=== PATIENT | female | born 1990 | race Caucasian/White ===

== ENCOUNTER 2017-03-06 22:36 | Outpatient (CLI) | payer OTHER ==
[2017-03-06 23:00] LABS: APPEARANCE,URINE CLEAR; BILIRUBIN,URINE NEGATIVE (NEGATIVE); GLUCOSE, URINE NEGATIVE (NEGATIVE); KETONES,URINE NEGATIVE (NEGATIVE); LEUKOCYTE ESTERASE,URINE SMALL (NEGATIVE); NITRITE,URINE NEGATIVE (NEGATIVE); PROTEIN,URINE NEGATIVE (NEGATIVE); URINE SPECIFIC GRAVITY 1.009
[2017-03-06 23:10] LABS: URINE BARBITURATES SCREEN NEGATIVE; URINE METHADONE SCREEN NEGATIVE; URINE OPIATES LOW NEGATIVE; URINE PHENCYCLIDINE SCREEN NEGATIVE
[2017-03-06] MEDS ORDERED: RINGERS SOLUTION,LACTATED 1,000 ML IV PRN (23:55)
--- NOTE | 2017-03-07 00:59 | RADIOLOGY REPORT (SQ) ---
EXAM DESCRIPTION: U/S OB LIMITED COMPLETED DATE/TIME: 03/07/2017 12:29 am REASON FOR STUDY: cervical length for contractions COMPARISON: None. TECHNIQUE: Limited transvaginal and transabdominal grayscale ultrasound for evaluation of specific r equested obstetrical parameters. LIMITATIONS: None. FINDINGS: CERVICAL LENGTH: 5.7 cm. Closed. IDALMIS: Adequate. FHR: 153 beats per minute. PRESENTATION: Breech. OTHER: No other significant findings. IMPRESSION: LIMITED OBSTETRICAL ULTRASOUND WITH MEASURED PARAMETERS DELINEATED ABOVE. Trimester of : Third trimester - 28 weeks to delivery. TECHNICAL DOCUMENTATION: JOB ID: [id number] [employer]- All Rights Reserved
== END 2017-03-07 01:21 | disposition home or self-care (01) ==
LOC: LC 22:36
PROVIDERS: ATTEND Obstetrics & Gynecology
PROC: 4A1HXCZ Monitoring of Products of Conception, Cardiac Rate, External Approach (ICD-10-PCS; principal; 2017-03-06)
DX: O47.02 False labor before 37 completed weeks of gestation, second trimester (principal); Z3A.24 24 weeks gestation of pregnancy
CPT/HCPCS: 76815; 80307; 81001

== ENCOUNTER 2017-06-05 23:36 | Outpatient (CLI) | payer OTHER ==
[2017-06-06 00:45] LABS: APPEARANCE,URINE CLOUDY; BILIRUBIN,URINE NEGATIVE (NEGATIVE); GLUCOSE, URINE NEGATIVE (NEGATIVE); KETONES,URINE NEGATIVE (NEGATIVE); LEUKOCYTE ESTERASE,URINE MODERATE (NEGATIVE); NITRITE,URINE NEGATIVE (NEGATIVE); PROTEIN,URINE NEGATIVE (NEGATIVE); URINE SPECIFIC GRAVITY 1.019; UROBILINOGEN,URINE NEGATIVE mg/dL (<2.0)
[2017-06-06 00:54] LABS: AMNISURE (ROM) NEGATIVE (NEGATIVE)
[2017-06-06 01:44] LABS: URINE BARBITURATES SCREEN NEGATIVE; URINE METHADONE SCREEN NEGATIVE; URINE OPIATES LOW NEGATIVE; URINE PHENCYCLIDINE SCREEN NEGATIVE
== END 2017-06-06 01:11 | disposition home or self-care (01) ==
LOC: LC 23:36
PROVIDERS: ATTEND Obstetrics & Gynecology
PROC: 4A1HXCZ Monitoring of Products of Conception, Cardiac Rate, External Approach (ICD-10-PCS; principal; 2017-06-05)
DX: Z36 Encounter for antenatal screening of mother (principal); Z3A.37 37 weeks gestation of pregnancy
CPT/HCPCS: 59025; 80307; 81005; 84112

== ENCOUNTER 2017-06-15 03:24 | Inpatient (IN) | payer OTHER ==
--- NOTE | 2017-06-15 03:36 | Non Stress Test Report ---
Non Stress Test Datetime Report Generated by CPN: 06/15/2017 03:35 DEMOGRAPHIC Test Number: 1 EGA NST: 37.5 INDICATION Indication for Study: Other Indication for Study (NST) Other: Labor check MONITORING Monitor Explained: Monitor Explained; Test Explained; Patient Verbalized Understanding Time on Monitor: 06/05/2017 23:56 Time off Monitor: 06/06/2017 01:00 NST Duration: 64 NST INTERVENTIONS NST Interventions: None Physician Notified NST: Dr Limon BABY A: [id number] BABY A Movement : Present Contraction Frequency : occasional with irritability FHR Baseline : 125 Accelerations : 15X15 Decelerations : None Variability : Moderate 6-25bpm NST Review: Meets Criteria for Reactive NST NST Review and Verified By : Zunilda Lopez RN NST Results: Reactive NST REPORT Report Trigger: Send Report
[2017-06-15 03:53] LABS: APPEARANCE,URINE CLOUDY; BILIRUBIN,URINE NEGATIVE (NEGATIVE); GLUCOSE, URINE NEGATIVE (NEGATIVE); KETONES,URINE NEGATIVE (NEGATIVE); LEUKOCYTE ESTERASE,URINE LARGE (NEGATIVE); NITRITE,URINE NEGATIVE (NEGATIVE); PROTEIN,URINE NEGATIVE (NEGATIVE); URINE SPECIFIC GRAVITY 1.012
[2017-06-15 04:08] LABS: URINE BARBITURATES SCREEN NEGATIVE; URINE METHADONE SCREEN NEGATIVE; URINE OPIATES LOW NEGATIVE; URINE PHENCYCLIDINE SCREEN NEGATIVE
[2017-06-15] MEDS ORDERED: FENTANYL/BUPIVACAINE/NS/PF 200 MCG/100 ML RTUINJ EPI PRN (04:41)
[2017-06-15] MEDS ORDERED: BENZOIN/ALOE VERA/STORAX/TOLU TINCTURE 60 ML TP PRN (04:41)
[2017-06-15] MEDS ORDERED: EPHEDRINE SULFATE INJ 50 MG/1 ML AMPULE IV PRN (04:41)
[2017-06-15] MEDS ORDERED: BUPIVACAINE HCL 0.25 % INJ/PF (2.5 MG/1 ML) 30 ML VIAL INFIL ONE (04:41)
[2017-06-15] MEDS ORDERED: EPHEDRINE SULFATE INJ 50 MG/1 ML AMPULE IV ONE (04:41)
[2017-06-15 04:53] LABS: ABSOLUTE EOSINOPHILS # (AUTO) 0.1 10^3/uL (0.0-0.6); ABSOLUTE LYMPHOCYTES (AUTO) 1.4 10^3/uL (0.5-4.7); ABSOLUTE MONOCYTES (AUTO) 0.7 10^3/uL (0.1-1.4); ABSOLUTE NEUT (AUTO) 5.5 10^3/uL (1.7-8.2); BASOPHILS % (AUTO) 0.3 % (0-2); EOSINOPHILS % (AUTO) 0.8 % (0-6); HEMATOCRIT 33.1 % (36.0-47.0); HEMOGLOBIN 11.3 g/dL (12.0-15.5); HGB HCT DIFFERENCE 0.8; LYMPHOCYTES % (AUTO) 18.2 % (13-45); MEAN CORPUSCULAR VOLUME 88 fl (80-97); MONOCYTES % (AUTO) 8.9 % (3-13); RED BLOOD COUNT 3.75 10^6/uL (3.72-5.28); RED CELL DISTRIBUTION WIDTH 13.9 % (11.5-14.0); SEGMENTED NEUTROPHILS % (AUTO) 71.8 % (42-78); WHITE BLOOD COUNT 7.6 10^3/uL (4.0-10.5)
[2017-06-15] MEDS ORDERED: OXYTOCIN/NORMAL SALINE 20 UNIT/1,000 ML RTUINJ ONE (04:56)
[2017-06-15] MEDS ORDERED: MISOPROSTOL 0.2 MG TABLET ONE (04:56)
[2017-06-15] MEDS ORDERED: LIDOCAINE 1% INJ-PF (10 MG/ML) 30 ML SDV ONE (04:56)
[2017-06-15] MEDS ORDERED: PHENYLEPHRINE HCL INJ/PF 10 MG/1 ML SDV ONE (04:57)
[2017-06-15] MEDS ORDERED: FENTANYL/BUPIVACAINE/NS/PF 200 MCG/100 ML RTUINJ EPI ONE (04:57)
[2017-06-15] MEDS ORDERED: FENTANYL CITRATE INJ/PF 100 MCG/2 ML AMPUL ONE (04:57)
[2017-06-15] MEDS ORDERED: EPHEDRINE SULFATE INJ 50 MG/1 ML AMPULE ONE (04:57)
[2017-06-15] MEDS ORDERED: BUPIVACAINE HCL 0.25 % INJ/PF (2.5 MG/1 ML) 30 ML VIAL ONE (04:58)
[2017-06-15] MEDS: RINGERS SOLUTION,LACTATED 1,000 ML IV PRN ×2 (06:19→06:20)
--- NOTE | 2017-06-15 09:28 | L&D Progress Notes ---
PROGRESS NOTES Datetime Report Generated by CPN: 06/15/2017 09:28 PROGRESS NOTE Impression: Normal Progression of Labor; Reassuring Heart Rate Impression: Normal Progression of Labor; Reassuring Heart Rate Procedures: Artificial ROM; Sterile Vag Exam Procedures: Artificial ROM; Sterile Vag Exam Plan: Continue Present Management Plan: Continue Present Management Informed Consent Obtained: Vaginal Delivery Informed Consent Obtained: Vaginal Delivery Vital Signs : Reviewed Vital Signs : Reviewed; Within Normal Limits Comment: SVE as above AROM clear Anticipate VAGINAL EXAM Dilatation: 9 Dilatation: 6 Effacement: 90 Effacement: 80 Station: 0 Station: 0 Contractions: 3-4 MEMBRANES Membranes: Ruptured Membranes: Intact Amniotic Fluid Color: Clear FETUS A FHR - Baseline: 125 Monitoring: External US Variability: Moderate 6-25bpm Accelerations: 15X15 Decelerations: None FHR Category: Category I : 39.1 Presentation: Vertex SIGNATURE SIGNATURE: [id number] SIGNATURE: [id number] Assignment: Lakesha Paz MD Signature: with User ID: [email or web address] : with User ID: [email or web address]
[2017-06-15] MEDS ORDERED: ACETAMINOPHEN WITH CODEINE #3 TABLET PO PRN ×2 (11:23)
[2017-06-15] MEDS ORDERED: DIBUCAINE 1% OINTMENT 28 GM TP PRN (11:23)
[2017-06-15] MEDS ORDERED: MEASLES,MUMPS&RUBELLA VACC/PF 0.5 ML VIAL SUBCUT PRN (11:23)
[2017-06-15] MEDS ORDERED: DIPH/PERTUSS(ACELL)/TETANUS VAC/PF 0.5 ML SYR (>=10YO) IM PRN (11:23)
[2017-06-15] MEDS ORDERED: BENZOCAINE/MENTHOL AEROSOL SPRAY 56 ML TOP PRN (11:23)
[2017-06-15] MEDS ORDERED: OXYTOCIN/NORMAL SALINE 20 UNIT/1,000 ML RTUINJ IV PRN (11:23)
[2017-06-15] MEDS ORDERED: NALBUPHINE HCL INJ 10 MG/1 ML AMPULE ONE (12:41)
[2017-06-15] MEDS ORDERED: NALBUPHINE HCL INJ 10 MG/1 ML AMPULE INJ ONE (12:52)
--- NOTE | 2017-06-15 13:23 | Delivery Summary ---
Del Sum A-C Datetime Report Generated by CPN: 06/15/2017 13:23 DELIVERY PERSONNEL DELIVERY PERSONNEL: [id number] Delivery Doctor:: Bernarda Ballesteros CNM Nurse Solid Waste Manager Certified:: Bernarda Ballesteros CNM Labor and Delivery Nurse:: Chel Javier RNslot service specialist Nurse:: SHAHEEN Martinez Container Finisher/PATTERN SCRATCHER: Sonya Matos, ST Container Finisher/PATTERN SCRATCHER: Shey Brown PATTERN SCRATCHER II MATERNAL INFORMATION Delivery Anesthesia: Epidural Medications After Delivery: Pitocin Bolus-Please Comment; Pitocin Drip 20 Units/1000ml NSS; Other-Please Comment Meds After Delivery Comment: Cytotec 1000 mcg AR Estimated Blood Loss (ml): 200 Maternal Complications: None Provider Comments: of viable female . Head delivered loose nuchal noted, reduced, shoulders and body delivered without difficulty, infant with spontaneous cry and respoirations, to warmer, after cord clamped X2 and cut free. Spontaneous delivery of placenta via cash mechanism, appears intact, 3 VC. Vagina and perineum inspected, no lacerations ntoed, hemostasis acheived with external fundal massage and IV Pitocin. Routine pp care. LABOR SUMMARY EDC: 06/21/2017 00:00 No. Babies in Womb: 1 Attempted: No Labor Anesthesia: Epidural LABOR INFORMATION Reason for Induction: Not Applicable Onset of Labor: 06/15/2017 03:48 Complete Dilatation: 06/15/2017 10:55 Oxytocin: N/A Group B Beta Strep: negative Antibiotics # of Doses: 0 Steroids Given: None Reason Steroids Not Administered: Not Applicable MEMBRANES Membranes Rupture Method: Artificial Rupture of Membranes: 06/15/2017 09:22 Length of Rupture (hr): 1.63 Amniotic Fluid Color: Clear Amniotic Fluid Amount: Moderate Amniotic Fluid Odor: Normal STAGES OF LABOR Stage 1 hr: 7 Stage 1 min: 7 Stage 2 hr: 0 Stage 2 min: 5 Stage 3 hr: 0 Stage 3 min: 2 Total Time in Labor hr: 7 Total Time in Labor min: 14 VAGINAL DELIVERY Episiotomy: None Laceration Extension: N/A Laceration Type: None Laceration Repair: Not Applicable Laceration Repair Note: n/a Sponge Count Correct: N/A CSECTION DELIVERY Primary Indication: N/A CSection Incision: N/A BABY A INFORMATION Infant Delivery Date/Time: 06/15/2017 11:00 Method of Delivery: Vaginal Born in Route : No : N/A Forceps: N/A Vacuum Extraction: N/A Shoulder Dystocia : No PRESENTATION/POSITION BABY A Presentation: Cephalic Cephalic Presentation: Vertex Vertex Position: Left Occipital Anterior Breech Presentation: N/A PLACENTA INFORMATION BABY A Placenta Delivery Time : 06/15/2017 11:02 Placenta Method of Delivery: Spontaneous Placenta Status: Delivered SCORES BABY A Heart Rate 1 min: >100 bpm Resp Effort 1 min: Good Cry Reflex Irritability 1 min: Cough or Sneeze or Pulls Away Muscle Tone 1 min: Active Motion Color 1 min: Blue/Pale Resuscitation Effort 1 min: Tactile Stimulation SCORE 1 MIN: 8 Heart Rate 5 min: >100 bpm Resp Effort 5 min: Good Cry Reflex Irritability 5 min: Cough or Sneeze or Pulls Away Muscle Tone 5 min: Active Motion Color 5 min: Body [place], Extremities Blue Resuscitation Effort 5 min: Tactile Stimulation SCORE 5 MIN: 9 INFORMATION BABY A Gestational Age at Delivery: 39.1 Gestational Status: Full Term- 39- 40.6 Weeks Outcome : Liveborn Condition : Stable Sex: Female IDENTIFICATION BABY A Verification Date/Time: 06/15/2017 11:19 ID Band Number: [id number] Mother's Name Verified: Yes RN Verifying : C Girolamo RN Additional Verifying Personnel: D [facility] RNC WEIGHT/LENGTH BABY A Infant Birthweight (gm): 3050 Infant Weight (lb): 6 Weight (oz): 12 Infant Length (in): 21.50 Infant Length (cm): 54.61 CORD INFORMATION BABY A No. Cord Vessels: 3 Nuchal Cord : N/A Cord Blood Taken: Yes-For Eval (Mom's Blood Type - or O+) Infant Suction: Mouth; Nose ASSESSMENT BABY A Complications: Multiple Variable Decels Physical Findings at Delivery: Within Normal Limits Infant Respirations: Appears Normal Skin to Skin: No Addictions Counselor/ALS Called : No Care By: D Bellavance RNC Transferred To: Remains with Mother RESUSCITATION BABY A Resuscitation Effort: Tactile Stimulation SIGNATURES Assignment: Lakesha Paz MD Signature: with User ID: [email or web address] : with User ID: [email or web address]
--- NOTE | 2017-06-15 13:44 | Admission Physical ---
Datetime Report Generated by CPN: 06/15/2017 13:44 CURRENT ADMISSION Chief Complaint: Uterine Contractions Indication for Induction: Not Applicable Admit Plan: Admit to Unit; Initiate Labor Protocol ALLERGIES Medication Allergies: No Medication Allergies: No Known Allergies (03/07/2017) Latex: No Latex Allergies OBSTETRICAL HISTORY EDC: 06/21/2017 00:00 : 5 Para: 3 Term: 3 : 0 SAB: 0 IAB: 1 Ectopic: 0 Livin Cesareans: 0 VBACs: 0 Multiple Births: 0 Gestational Diabetes: No Rh Sensitization: No Incompetent Cervix: No LUANNE: No Infertility: No ART Treatment: No Uterine Anomaly: No IUGR: No Hx Previous C/S: No Macrosomia: No Hx Loss/Stillborn: No PIH: No Hx : No Placenta Previa/Abruption: No Depression/PP Depression: No PTL/PROM: Yes Post Hemorrhage: No Current Procedures: None; NST Obstetrical History Comments: g1-2007, , male, 19 1/2 hours of labor, 6lb 10oz g2- 2008, unsure of gestation EAB per patient prenatals g3-2012, , male, 9 hours of labor, 6lb 70z g4-2016, , female, unsure of labor time, 6lb 90z, started labor was on procardia until delivery 38 weeks g5-current , short interval pregnancies SEE RECORDS Alcohol: No Marijuana : No Cocaine: No Other Illicit Drugs: No Cigarettes: Former Smoker. 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 Heart Disease: No Hosp/Surgery: Yes Autoimmune Disorder: No Anesthetic Complications: No Kidney Disease: No Abnormal Pap Smear: No Neuro/Epilepsy: No Psychiatric Disorders: No Other Medical Diseases: No Hepatitis/Liver Disease: No Significant Family History: No Varicosities/Phlebitis: No Trauma/Violence : No Thyroid Dysfunction: No Medical History Comments: R knee surgery 2005, childbirth x3, former smoker INFECTIOUS HISTORY Gonorrhea: No Genital Herpes: No Chlamydia: No Tuberculosis: No Syphilis: No Hepatitis: No HIV/AIDS Exposure: No Rash or Viral Illness: No HPV: No PHYSICAL EXAM General: Normal HEENT: Normal Neurologic: Normal Thyroid: Deferred Heart: Normal Lungs: Normal Breast: Deferred Back: Normal Abdomen: Normal Genitourinary Exam: Normal Extremities: Normal DTRs: Normal Pelvic Type: Adequate Vital Signs: Reviewed; Within Normal Limits VAGINAL EXAM Dilatation: 9 Dilatation: 6 Effacement: 90 Effacement: 80 Station: 0 Station: 0 Contraction Comments: 3-4 MEMBRANES Membranes: Ruptured Membranes: Intact Amniotic Fluid Color: Clear FETUS A EGA: 39.1 Monitoring: External US FHR- Baseline: 140 Variability: Moderate 6-25bpm Accelerations: 15X15 Decelerations: None FHR Category: Category I Presentation: Vertex PLANS FOR LABOR AND DELIVERY Labor and Delivery: None Pain Management: Epidural Feeding Preference: Formula Benefit of Breast Feed Discussed: Yes Circumcision: N/A INFORMED CONSENT Informed Consent Obtained: Vaginal Delivery Informed Consent Obtained: Vaginal Delivery Signature: with User ID: [email or web address]
[2017-06-15] MEDS: IBUPROFEN 800 MG TABLET PO SCH ×2 (16:29→21:32)
[2017-06-15] MEDS: FERROUS SULFATE 325 MG TABLET PO SCH (17:37)
[2017-06-15] MEDS: DOCUSATE SODIUM 100 MG CAPSULE PO SCH (17:37)
[2017-06-15] MEDS: ZOLPIDEM TARTRATE 5 MG TABLET PO PRN (22:50)
[2017-06-16] MEDS: IBUPROFEN 800 MG TABLET PO SCH ×3 (05:11→21:03)
[2017-06-16 07:40] LABS: HEMATOCRIT 30.4 % (36.0-47.0); HEMOGLOBIN 10.9 g/dL (12.0-15.5); HGB HCT DIFFERENCE 2.3; MEAN CORPUSCULAR HEMOGLOBIN 30.9 pg (27.0-33.4); MEAN CORPUSCULAR HGB CONC 35.9 g/dL (32.0-36.0); MEAN CORPUSCULAR VOLUME 86 fl (80-97); RED BLOOD COUNT 3.53 10^6/uL (3.72-5.28); RED CELL DISTRIBUTION WIDTH 14.2 % (11.5-14.0); WHITE BLOOD COUNT 8.8 10^3/uL (4.0-10.5)
[2017-06-16] MEDS: PRENATAL VITAMIN W-O CA NO5/FE FUMARATE/FA CAPSULE PO SCH (09:50)
[2017-06-16] MEDS: FERROUS SULFATE 325 MG TABLET PO SCH ×2 (09:51→18:54)
[2017-06-16] MEDS: SENNOSIDES/DOCUSATE 8.6-50 MG 1 EACH TABLET PO SCH (09:51)
[2017-06-16] MEDS: DOCUSATE SODIUM 100 MG CAPSULE PO SCH ×2 (09:51→18:55)
--- NOTE | 2017-06-16 11:01 | PDOC PROGRESS REPORT ---
Subjective-OB Subjective: Post Delivery Day: 26 year old. Denies any needs at this time Physical Exam (OB) Vital Signs: Temp Pulse Resp BP Pulse Ox 97.3 F 69 14 121/73 100 06/16/17 08:29 06/16/17 08:29 06/16/17 08:29 06/16/17 08:29 06/16/17 08:29 Intake & Output 06/15/17 06/16/17 06/17/17 06:59 06:59 06:59 Intake Total 400 Balance 400 Weight 73.9 kg - Lochia Lochia Amount: Small 10-25 ml Lochia Color: Rubra/Red - Abdomen Description: Soft, Round Hernia Present: No Bowel Sounds: Normoactive Flatus Presence: Absent Stool: No Fundal Description: Firm, Midline Fundal Height: u/u - u/2 Objective-Diagnostic Laboratory: 06/16/17 07:06 06/16/17 06/16/17 07:06 07:06 WBC 8.8 RBC 3.53 L Hgb 10.9 L Hct 30.4 L MCV 86 MCH 30.9 MCHC 35.9 RDW 14.2 H Plt Count 166 Blood Type A NEGATIVE
[2017-06-16] MEDS: ZOLPIDEM TARTRATE 5 MG TABLET PO PRN (21:04)
[2017-06-17] MEDS: IBUPROFEN 800 MG TABLET PO SCH (05:50)
[2017-06-17 08:55] VITALS: BP 131/69
--- NOTE | 2017-06-17 09:08 | PDOC DISCHARGE SUMMARY ---
Final Diagnosis Discharge Date: 06/17/17 - Final Diagnosis (1) Delivery normal Is this a current diagnosis for this admission?: Yes (2) Lapse in antepartum care Is this a current diagnosis for this admission?: Yes Discharge Data - Discharge Medication Home Medications: No Home Medications 03/07/17 Reason(s) for Admission: Onset of Labor Procedures: NST Intrapartum Procedure(s): Spontaneous Vaginal Delivery - Diagnosis Test Laboratory: Temp Pulse Resp BP Pulse Ox 98.0 F 66 16 131/69 H 100 06/17/17 08:38 06/17/17 08:38 06/17/17 08:38 06/17/17 08:38 06/17/17 08:38 06/15/17 06/15/17 06/16/17 03:36 04:18 07:06 RBC 3.75 3.53 L Hgb 11.3 L 10.9 L Hct 33.1 L 30.4 L Urine Opiates Screen NEGATIVE - Discharge information/Instructions Discharge Activity: Balance Activity w/Rest, Pelvic Rest Discharge Diet: Regular Disposition: HOME, SELF-CARE Follow up with: [facility] in: 4, Weeks
[2017-06-17] MEDS: FERROUS SULFATE 325 MG TABLET PO SCH (09:52)
[2017-06-17] MEDS: DOCUSATE SODIUM 100 MG CAPSULE PO SCH (09:53)
[2017-06-17] MEDS: SENNOSIDES/DOCUSATE 8.6-50 MG 1 EACH TABLET PO SCH (09:53)
[2017-06-17] MEDS: PRENATAL VITAMIN W-O CA NO5/FE FUMARATE/FA CAPSULE PO SCH (09:53)
== END 2017-06-17 12:25 | disposition home or self-care (01) | DRG 775 ==
LOC: LC 03:24 → LR 04:03 → 2S 13:40
PROVIDERS: ADMIT Student in an Organized Health Care Education/Training Program; ATTEND Student in an Organized Health Care Education/Training Program
PROC: 10E0XZZ Delivery of Products of Conception, External Approach (ICD-10-PCS; principal; 2017-06-15)
PROC: 3E0234Z Introduction of Serum, Toxoid and Vaccine into Muscle, Percutaneous Approach (ICD-10-PCS; 2017-06-16)
DX: O69.81X0 Labor and delivery complicated by cord around neck, without compression, not applicable or unspecified (principal); O36.0930 Maternal care for other rhesus isoimmunization, third trimester, not applicable or unspecified; O76 Abnormality in fetal heart rate and rhythm complicating labor and delivery; Z3A.39 39 weeks gestation of pregnancy; Z37.0 Single live birth
CPT/HCPCS: 36415; 80307; 81005; 85025; 85027; 85461; 86592; 86850; 86870; 86900; 86901; J2300; J2370; J2590; J2790; J3010; J3490